=== PATIENT | female | born 1945 | race African-American/Black ===

== ENCOUNTER 2024-09-06 16:45 | Emergency (ER) | payer OTHER ==
[~2024-09-06] VITALS: Ht 152.4 cm; Wt 66.2 kg
[2024-09-06 17:00] VITALS: BP 108/66; O2SAT 97
[2024-09-06] MEDS ORDERED: COZAAR100 MG PO (17:01)
[2024-09-06] MEDS ORDERED: AMLODIPINE-OLM1 EAC2 PO (17:01)
[2024-09-06] MEDS ORDERED: ATORVASTATIN CA40 MG PO (17:01)
[2024-09-06] MEDS ORDERED: 0.9 % SODIUM CHLORIDE 1,000 ML IV ONE (17:15)
[2024-09-06 18:05] LABS: HEMATOCRIT 33.4 % (36.0-45.00); HEMOGLOBIN 10.8 g/dL (12.0-15.00); MEAN CELL VOLUME 75.3 fL (80.00-100.00); MEAN CORPUSCULAR HEMOGLOBIN 24.3 pg (27.00-32.0); MEAN CORPUSCULAR HGB CONC 32.2 g/dl (32.0-36.0); PLATELET COUNT 231 K/uL (150-450); RED BLOOD COUNT 4.44 M/uL (4.00-6.00); RED CELL DISTRIBUTION WIDTH 17.3 % (11.5-14.5)
[2024-09-06 18:16] LABS: ABG PH 7.444 (7.35-7.45); ABG pCO2 40.4 mmHg (35-45); BASE EXCESS 2.8 mmol/l; SaO2 96.9 %; Tco2 28.3 mmol/l; allen test SATISFACTORY; o2 21 %; puncture site RADIAL RIGHT
[2024-09-06 18:30] LABS: D DIMER 0.39 MG/L; PARTIAL THROMBOPLASTIN TIME 28.5 SECONDS (22.0-34.0)
[2024-09-06 18:31] LABS: INR 0.95; PROTHROMBIN TIME 10.4 SECONDS (9.0-11.5)
[2024-09-06 18:33] LABS: ALBUMIN 3.5 gm/dL (3.4-5.0); BILIRUBIN TOTAL 0.37 mg/dL (0.3-1.2); CALCIUM 9.4 mg/dL (8.5-10.1); CREATININE SERUM 1.38 mg/dL (0.55-1.02); GFR 36.79; GLOBULINA 3.8 G/DL (2.4-3.5); POTASSIUM 3.36 mEq/L (3.5-5.1); TOTAL PROTEIN 7.3 gm/dL (6.4-8.2)
[2024-09-06 18:48] LABS: URINE APPEARANCE Cloudy; URINE BILIRRUBIN Negative (NEGATIVE); URINE BLOOD Negative; URINE COLOR Yellow; URINE GLUCOSE Negative (NEGATIVE); URINE KETONE Trace (NEGATIVE); URINE LEUKOCYTE Trace; URINE NITRATE Negative; URINE PROTEIN Negative (NEGATIVE)
[2024-09-06 18:55] LABS: URINE BACTERIA 1081.7 uL (0.0-1933); URINE CAST 3.53 uL (0.0-1.40); URINE EPITHELIAL CELLS 102.7 uL (0.0-38.8); URINE RBC 10.1 uL (0.0-20.8); URINE WBC 37.1 uL (0.0-23.2)
[2024-09-06 19:40] LABS: URINE CRYSTALS FEW /HPF; URINE MUCUS SCANT; URINE YEAST FEW /hpf
[2024-09-06] MEDS ORDERED: BACTRIM DS TAB1 EACH PO (21:55)
[2024-09-06] MEDS ORDERED: PEPCID AC20 MG PO (21:55)
== END 2024-09-06 22:05 | disposition home or self-care (01) ==
LOC: ER 16:45
PROVIDERS: General Practice
DX: R53.81 Other malaise (principal); R06.02 Shortness of breath; I10 Essential (primary) hypertension
CPT/HCPCS: 36415; 71045; 82803; 93005; 96365; 96366; 99283; J7030